=== PATIENT | female | born 1955 | race Caucasian/White ===

== ENCOUNTER 2024-08-17 08:46 | Observation (INO) ==
[~2024-08-17 08:46] MED LIST: Dexamethasone IV 4 MG/ML VIAL 1 ml VIAL ONE; Glycopyrrolate IV 0.2 MG/ML 1 ML VIAL ONE; Lidocaine 2% PF 5 ML VIAL ONE; Naloxone 0.4 mg VIAL 0.4 mg/ml 1 ml VIAL IV PRN; Ondansetron 4 mg VIAL 2 MG/ML 2 ml VIAL ONE; Propofol 10 MG/ML 20 ML BTL ONE; Rocuronium 50 mg VIAL 10 mg/ml 5 ml VIAL (50 mg) ONE; fentaNYL 250 mcg/5 ml 50 MCG/ML 5 ml VIAL (250 MCG) ONE
[2024-08-17] MEDS ORDERED: ceFAZolin 2 GM PREMIX 2 GM/50 ML BAG ONE (09:11)
[2024-08-17] MEDS ORDERED: Tranexamic Acid 1 GM/100ML BAG 2,000 MG/200 ML BAG IV ONE (09:13)
[2024-08-17 09:31] LABS: Rapid COVID-19 Molecular Undetected (Undetected)
[2024-08-17] MEDS: Lactated Ringers 1000 ml BAG 1,000 ML IV SCH ×2 (09:41→16:49)
[2024-08-17] MEDS ORDERED: fentaNYL 100 mcg/2 ml 50 MCG/ML VIAL ONE (10:04)
[2024-08-17] MEDS ORDERED: Midazolam 2 mg/2 ml VIAL 1 mg/ml 2 ml VIAL (2 mg) ONE (10:16)
[2024-08-17] MEDS ORDERED: HYDROmorphone 1 MG/1 ML SYRINGE IV SLOW PU PRN (11:04)
[2024-08-17] MEDS ORDERED: ROPIVACAINE 5 MG/ML 30 ML BTL (0.5%) ONE (11:22)
[2024-08-17] MEDS ORDERED: Lidocaine 1% w EPI 1:100,000 MDV 50 ML VIAL ONE (11:30)
[2024-08-17] MEDS ORDERED: Glycopyrrolate IV 0.2 MG/ML 1 ML VIAL ONE (12:57)
[2024-08-17] MEDS ORDERED: Magnesium Hydroxide LIQ 30 ML UDC PO PRN (15:06)
[2024-08-17] MEDS ORDERED: Morphine 2 MG/ML SYRINGE IV PRN (15:06)
[2024-08-17] MEDS ORDERED: Ondansetron ODT 4 mg TAB 4 MG TAB PO PRN (15:06)
[2024-08-17] MEDS ORDERED: Lactulose 30 ml UDC PO PRN (15:06)
[2024-08-17] MEDS ORDERED: Ondansetron 4 mg VIAL 2 MG/ML 2 ml VIAL ONE (15:46)
[2024-08-17] MEDS: Ondansetron 4 mg VIAL 2 MG/ML 2 ml VIAL IV PRN (15:47)
[2024-08-17] MEDS: Buffered Lidocaine 1% SYRIN 1 ml INTRADERM ONE (17:19)
[2024-08-17] MEDS: Magnesium Hydroxide LIQ 30 ML UDC PO SCH (20:45)
[2024-08-17] MEDS: ceFAZolin 1 GM ADVAN 1 GM in NS 0.9% 50 ML 50 ML IVPB SCH (20:45)
[2024-08-18 06:06] LABS: Hematocrit 36.6 % (35-45); Hemoglobin 12.5 g/dL (11.5-14.3); Mean Platelet Volume 9.2 fL (7.5-11.2); Platelet Count 179 10^3/uL (150-450)
[2024-08-18 06:56] LABS: Calcium 8.9 mg/dL (8.6-10.3); Creatinine, Serum 0.68 mg/dL (0.51-0.95); Potassium 4.1 mmol/L (3.5-5.0); eGFR CKD-EPI 94.2 (>60)
[2024-08-18] MEDS: Vitamin THERAPEUTIC TAB PO SCH (07:43)
[2024-08-18 10:07] VITALS: BP 132/65
== END 2024-08-18 12:55 | disposition home or self-care (01) ==
LOC: SSU 08:46 → OR 08:46
PROVIDERS: ADMIT Orthopaedic Surgery Sports Medicine; ATTEND Orthopaedic Surgery Sports Medicine